=== PATIENT | male | born 1980 | race Caucasian/White ===

== ENCOUNTER 2023-01-16 19:28 | Emergency (ER) | payer MEDICAID ==
[~2023-01-16] VITALS: Ht 172.7 cm; Wt 92.0 kg
[~2023-01-16 19:28] MED LIST: ENERGY VITAMIN PO
[2023-01-16 19:57] VITALS: BP 136/60; PULSE 62; RESP 17; TEMP 98.1
== END 2023-01-16 23:16 | disposition left against medical advice (07) ==
LOC: EMS 19:30
DX: R19.7 Diarrhea, unspecified (principal); R11.2 Nausea with vomiting, unspecified; Z53.21 Procedure and treatment not carried out due to patient leaving prior to being seen by health care provider
CPT/HCPCS: 99281; Z7502